=== PATIENT | male | born 1985 | race Caucasian/White ===

== ENCOUNTER 2016-10-02 13:23 | Emergency (ER) | payer SELFPAY ==
[2016-10-02] MEDS ORDERED: CHLORDIAZEPOXIDE HCL 25 MG CAPSULE PO ONE (14:00)
[2016-10-02] MEDS ORDERED: CHLORDIAZEPOXIDE HCL 25 MG CAPSULE ONE (14:35)
== END 2016-10-02 15:21 | disposition home or self-care (01) ==
DX: F10.10 Alcohol abuse, uncomplicated (principal); K21.9 Gastro-esophageal reflux disease without esophagitis; I10 Essential (primary) hypertension; F10.20 Alcohol dependence, uncomplicated
CPT/HCPCS: 36415; 80048; 83735; 85025; 99284; A4606; Z7610